=== PATIENT | female | born 1965 | race Caucasian/White ===

== ENCOUNTER 2018-04-27 06:02 | Day surgery (SDC) | payer OTHER ==
[~2018-04-27] VITALS: Ht 154.9 cm; Wt 56.7 kg
[2018-04-27] MEDS ORDERED: LIDOCAINE 2% 100 MG/5 ML UJET TP ONE (07:30)
[2018-04-27] MEDS ORDERED: AMLO10TA PO (07:36)
[2018-04-27] MEDS ORDERED: CITA10TA5 PO (07:36)
== END 2018-04-27 08:53 | disposition home or self-care (01) ==
LOC: MDS 06:02 → MMU 06:02 → MDS 08:53
PROVIDERS: ATTEND Internal Medicine Gastroenterology
DX: Z12.11 Encounter for screening for malignant neoplasm of colon (principal); K64.8 Other hemorrhoids; I10 Essential (primary) hypertension; F41.9 Anxiety disorder, unspecified; Z90.710 Acquired absence of both cervix and uterus; Z88.0 Allergy status to penicillin; Z79.899 Other long term (current) drug therapy; Z68.22 Body mass index [BMI] 22.0-22.9, adult